=== PATIENT | male | born 1960 | race Caucasian/White ===

== ENCOUNTER 2022-10-27 21:27 | Emergency (ER) | payer BC, SELFPAY ==
[2022-10-27 21:30] VITALS: BP 112/72; PULSE 83; RESP 19; TEMP 36.7; O2SAT 92; BMI 29.3
--- NOTE | 2022-10-27 21:37 | ECG_ITS ---
APPROVED REPORT Exam: Resting ECG HR:79 bpm ECG Measurements Heart Rate 79 AXES CA 147 P 65 QRSd 106 QRS 70 QT 399 T 60 QTc 433 Conclusion SINUS RHYTHM NORMAL ECG UNCONFIRMED REPORT Electronically signed by : Kwesi Mazariegos MD 10/28/2022 07:01:08
--- NOTE | 2022-10-27 21:55 | CT_ITS ---
PROCEDURE INFORMATION: Exam: CT Head Without Contrast Exam date and time: 10/27/2022 10:35 PM Age: 62 years old Clinical indication: Weakness, extremity; Additional info: Syncope, L sided weakness temporarily TECHNIQUE: Imaging protocol: Computed tomography of the head without contrast. Radiation optimization: All CT scans at this facility use at least one of these dose optimization techniques: automated exposure control; mA and/or kV adjustment per patient size (includes targeted exams where dose is matched to clinical indication); or iterative reconstruction. REPORTING DATA: Count of CT and Cardiac NM exams in prior 12 months: This patient has received 0 known CTs and 0 known cardiac nuclear medicine studies in the 12 months prior to the current study. COMPARISON: No relevant prior studies available. FINDINGS: Brain: Mild generalized cerebral/cerebellar atrophy. Minimal bilateral white matter hypodensities which are nonspecific but most commonly associated with chronic microvascular ischemia in this age group. The IACs are grossly normal. No extra-axial fluid collections. No evidence of acute intracranial hemorrhage. No CT evidence of large territory acute or subacute intracranial ischemia/infarct. No intracranial mass lesions. No midline shift or herniation. Cerebral ventricles: Ventricles normal. Pituitary gland and sella: The sella is grossly normal. Paranasal sinuses: Visualized paranasal sinuses are clear. Mastoid air cells: Visualized mastoid air cells are clear. Orbital cavities: No acute intraorbital findings. Bones/joints: The calvarium and visualized facial bones are intact. Soft tissues: The scalp and visualized soft tissues demonstrate no acute abnormality. Vasculature: No asymmetric vascular hyperdensities suggestive of thrombosis are identified. Other findings: Sandra-white matter differentiation is well maintained. IMPRESSION: 1. No acute intracranial process. No intracranial hemorrhage or mass effect. 2. Minor cerebral/cerebellar atrophy consistent with age.
--- NOTE | 2022-10-27 21:55 | XR_ITS ---
PROCEDURE INFORMATION: Exam: XR Chest Exam date and time: 10/27/2022 9:54 PM Age: 62 years old Clinical indication: Other: Syncope; Additional info: Syncpoe, dvt TECHNIQUE: Imaging protocol: Radiologic exam of the chest. Views: 1 view. COMPARISON: No relevant prior studies available. FINDINGS: Lungs: Normal pulmonary expansion. Pulmonary vasculature grossly normal. No gross pulmonary infiltrates or edema pattern. Pleural spaces: No pleural effusion. No pneumothorax. Heart/Mediastinum: Heart size normal. No tracheal/mediastinal shift. Vasculature: Mild aortic ectasia/tortuosity. Bones/joints: No acute osseous abnormalities are identified. Mild thoracic spondylosis. IMPRESSION: No acute thoracic process.
--- NOTE | 2022-10-27 21:55 | CT_ITS ---
PROCEDURE INFORMATION: Exam: CTA Chest With Contrast Exam date and time: 10/27/2022 10:44 PM Age: 62 years old Clinical indication: Other: Weakness; Additional info: Syncope, L sided weakness temporarily TECHNIQUE: Imaging protocol: Computed tomographic angiography of the chest with contrast. Exam focused on the arteries. 3D rendering (Not supervised by radiologist): MIP and/or 3D reconstructed images were created by the technologist. Radiation optimization: All CT scans at this facility use at least one of these dose optimization techniques: automated exposure control; mA and/or kV adjustment per patient size (includes targeted exams where dose is matched to clinical indication); or iterative reconstruction. Contrast material: ISOVUE; Contrast volume: 70 ml; Contrast route: INTRAVENOUS (IV); REPORTING DATA: Count of CT and Cardiac NM exams in prior 12 months: This patient has received 0 known CTs and 0 known cardiac nuclear medicine studies in the 12 months prior to the current study. COMPARISON: CR XR CHEST PORTABLE 10/27/2022 9:54 PM FINDINGS: Pulmonary arteries: Normal. No pulmonary emboli. Aorta: Unremarkable. No aortic aneurysm. No aortic dissection. Lungs: Minimal upper lobe emphysematous changes. Mild atelectasis. No focal airspace consolidation. Pleural spaces: Unremarkable. No pneumothorax. No pleural effusion. Heart: Unremarkable. No cardiomegaly. No pericardial effusion. Coronary arteries: Mild coronary artery calcifications. Lymph nodes: Unremarkable. No enlarged lymph nodes. Pancreas: Fatty infiltrative changes pancreas. Kidneys and ureters: Bilateral renal cysts, the largest of which measures 4.3 cm of the left kidney interpolar region. Bones/joints: No acute osseous findings. Degenerative changes of the bilateral shoulders. Soft tissues: Minimal bilateral gynecomastia. IMPRESSION: No pulmonary embolism. COMMENTS: 1. Consistent with the [employer]'s Incidental Findings Committee white paper (J Am Allyssa Radiol 2018): Any incidental renal lesion less than 1 cm or classified as too small to characterize, or any incidental cystic renal lesion characterized as simple-appearing, is likely benign. No follow-up imaging is recommended for these lesions per consensus recommendations based on imaging criteria. 2. In the absence of a history or active diagnosis of lung cancer, it is recommended that this patient with emphysema be evaluated for enrollment in a low dose CT lung cancer screening program.
--- NOTE | 2022-10-27 21:55 | CT_ITS ---
PROCEDURE INFORMATION: Exam: CTA Neck With Contrast Exam date and time: 10/27/2022 10:38 PM Age: 62 years old Clinical indication: Syncope and collapse; Additional info: Syncope, L sided weakness temporarily TECHNIQUE: Imaging protocol: Computed tomographic angiography of the neck with contrast. 3D rendering (Not supervised by radiologist): MIP and/or 3D reconstructed images were created by the technologist. Radiation optimization: All CT scans at this facility use at least one of these dose optimization techniques: automated exposure control; mA and/or kV adjustment per patient size (includes targeted exams where dose is matched to clinical indication); or iterative reconstruction. Contrast material: ISOVUE; Contrast volume: 100 ml; Contrast route: INTRAVENOUS (IV); REPORTING DATA: Count of CT and Cardiac NM exams in prior 12 months: This patient has received 0 known CTs and 0 known cardiac nuclear medicine studies in the 12 months prior to the current study. COMPARISON: CT HEAD/BRAIN WO CON 10/27/2022 10:35 PM FINDINGS: Right common carotid artery: Normal. No stenosis. No dissection or occlusion. Right internal carotid artery: Mild calcific plaque in the right carotid bulb. No stenosis. No dissection or occlusion. Right external carotid artery: Normal. No stenosis. No dissection or occlusion. Left common carotid artery: Normal. No stenosis. No dissection or occlusion. Left internal carotid artery: Minimal mixed calcific plaque in the left carotid bulb and proximal ICA segment. No stenosis. No dissection or occlusion. Left external carotid artery: Normal. No stenosis. No dissection or occlusion. Right vertebral artery: Normal. No stenosis. No dissection or occlusion. Left vertebral artery: Normal. No stenosis. No dissection or occlusion. Brachiocephalic artery: The brachiocephalic artery is unremarkable. Right subclavian artery: The right subclavian artery is unremarkable. Left subclavian artery: The left subclavian artery is unremarkable. Aorta: The visualized aortic arch demonstrates mild ectasia and calcific plaque without evidence of dissection or gross aneurysm. Thyroid: The thyroid gland is unremarkable. Soft tissues: No significant soft tissue swelling or hematoma. Bones/joints: No acute osseous abnormalities are identified. Moderate left-sided osteoarthritic facet hypertrophy in the mid and lower cervical spine. Prominent uncovertebral spurring C3-C4 and to a lesser degree C4-C5. Multilevel severe bilateral foraminal stenoses. Lungs: Mild bilateral apical pleuroparenchymal scarring. IMPRESSION: No evidence of arterial occlusion, significant stenosis, dissection, or aneurysm/pseudoaneurysm. REFERENCES: NASCET CRITERIA. The degree of stenosis in the cervical segment of the internal carotid artery is based on NASCET criteria. Normal is no stenosis. Mild is less than 50% stenosis. Moderate is 50-69% stenosis. Severe is 70% to 99% stenosis. Total occlusion is no detectable patent lumen.
--- NOTE | 2022-10-27 21:55 | CT_ITS ---
PROCEDURE INFORMATION: Exam: CTA Head With Contrast, Arteriography Exam date and time: 10/27/2022 10:38 PM Age: 62 years old Clinical indication: Syncope and collapse; Additional info: Syncope, L sided weakness temporarily TECHNIQUE: Imaging protocol: Computed tomographic angiography of the head with contrast. Exam focused on the arteries. 3D rendering (Not supervised by radiologist): MIP and/or 3D reconstructed images were created by the technologist. Radiation optimization: All CT scans at this facility use at least one of these dose optimization techniques: automated exposure control; mA and/or kV adjustment per patient size (includes targeted exams where dose is matched to clinical indication); or iterative reconstruction. Contrast material: ISOVUE; Contrast volume: 100 ml; Contrast route: INTRAVENOUS (IV); REPORTING DATA: Count of CT and Cardiac NM exams in prior 12 months: This patient has received 0 known CTs and 0 known cardiac nuclear medicine studies in the 12 months prior to the current study. COMPARISON: CT HEAD/BRAIN WO CON 10/27/2022 10:35 PM FINDINGS: ANTERIOR CIRCULATION: Right internal carotid artery: The right ICA petrous segment is unremarkable. Minimal calcific plaque in the right ICA cavernous segment without stenosis. The right ICA supraclinoid segment is unremarkable. Right middle cerebral artery: Unremarkable. No occlusion or significant stenosis. No aneurysm. Right anterior cerebral artery: Unremarkable. No occlusion or significant stenosis. No aneurysm. The anterior communicating artery is unremarkable. Left internal carotid artery: The left ICA petrous segment is unremarkable. Left ICA cavernous segment is unremarkable. The left ICA supraclinoid segment is unremarkable. Left middle cerebral artery: Unremarkable. No occlusion or significant stenosis. No aneurysm. Left anterior cerebral artery: Unremarkable. No occlusion or significant stenosis. No aneurysm. POSTERIOR CIRCULATION: Right vertebral artery: Unremarkable. No occlusion or significant stenosis. No aneurysm. Left vertebral artery: Unremarkable. No occlusion or significant stenosis. No aneurysm. Basilar artery: Unremarkable. No occlusion or significant stenosis. No aneurysm. Right posterior cerebral artery: Unremarkable. No occlusion or significant stenosis. No aneurysm. Left posterior cerebral artery: Unremarkable. No occlusion or significant stenosis. No aneurysm. Dural venous sinuses: Thin/linear nonocclusive filling defect extending in the left transverse sinus and sigmoid sinus has an appearance most suggestive of chronic bandlike fibrotic remnant of prior thrombosis although can not exclude acute or subacute elements of nonocclusive thrombus in this distribution. It is not fully occlusive. Venous drainage is right-sided dominant. The other dural venous sinuses and major cortical veins are patent without evidence of thrombosis. The proximal internal jugular veins are patent without evidence of thrombosis, although enhancement intensity is slightly lesser on the left. Brain: No enhancing brain lesions or vascular malformations are identified. Cerebral ventricles: No ventriculomegaly. Bones/joints: Unremarkable. No acute fracture. Soft tissues: Unremarkable. IMPRESSION: 1. No evidence of large vessel arterial occlusion or significant arterial stenosis. No evidence of arterial dissection or aneurysm/pseudoaneurysm. 2. 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 No alec venous o
[2022-10-27 22:00] VITALS: BP 100/63; PULSE 87; O2SAT 96
[2022-10-27 22:01] LABS: Basophils % 0.2 % (0.1-2.0); Eosinophils # 0.1 K/mm3 (0.0-0.4); Eosinophils % 0.9 % (0.1-12.0); Hematocrit 43.5 % (42.0-52.0); Lymphocytes # 1.8 K/mm3 (0.7-4.5); Mean Corpuscular HGB Conc 32.2 g/dL (31.8-35.4); Mean Corpuscular Hemoglobin 29.1 pg (27.0-31.2); Mean Corpuscular Volume 90.2 fl (80-94); Mean Platelet Volume 7.8 fl (7.4-10.4); Monocytes # 0.5 K/mm3 (0.1-1.0); Monocytes % 5.3 % (1.7-9.3); Neutrophils # 6.7 K/mm3 (1.8-7.8); Neutrophils % 73.6 % (37.0-80.0); Platelet Count 285 K/mm3 (142-424); Red Blood Count 4.82 M/mm3 (4.60-6.20); White Blood Count 9.1 K/mm3 (4.8-10.8)
[2022-10-27 22:02] LABS: Chloride 106 mmol/L (98-107); Potassium 3.6 mmoL/L (3.5-5.1); Sodium 143 mmol/L (136-145)
[2022-10-27 22:05] LABS: Alanine Aminotransferase 22 U/L (12-78); Albumin/Globulin Ratio 1.7 (1.1-1.8); Alkaline Phosphatase 80 U/L (38-126); Anion Gap 15.6 mEq/L (5-15); Aspartate Amino Transferase 25 U/L (17-59); Bilirubin,Total 0.7 mg/dl (0.2-1.3); Blood Urea Nitrogen 12 mg/dl (9-20); Carbon Dioxide 25 mmol/L (22.0-30.0); Creatinine Clearance Estimated 95 mL/min (50-200); Estimated Glomerular Filt Rate 61 ml/min (>60); GFR (African American) 74 ML/MIN (>60); Globulin 2.4 g/dL (1.3-3.2); Total Protein,Serum 6.4 g/dl (6.3-8.2)
[2022-10-27 22:06] LABS: Calcium 9.5 mg/dl (8.4-10.2); Glucose 156 mg/dl (74-100)
[2022-10-27 22:15] LABS: NT Pro Brain Natriuretic Pep. 176 pg/mL (0-125)
[2022-10-27 22:18] LABS: Troponin I < 0.01 ng/ml (0.00-0.034)
[2022-10-27 22:22] LABS: T4 (Thyroxine) 11.7 ug/dl (5.53-11.0)
--- NOTE | 2022-10-27 22:26 | HMH.EDGENADL ---
Discharge Plan Disposition Patient Disposition: Xfer Short-Term Hosp Condition: Good Referrals Follow up/Referrals: Erika Wilkes [Primary Care Provider] - See instructions Clinical Impressions Clinical Impression: Syncope and collapse, History of deep vein thrombosis, Cerebral venous sinus thrombosis Discharge ED Provider: Benoit Ansari General Adult HPI <Martin Amezcua MD - Last Filed: 10/27/22 23:01> General Chief complaint: Dizziness Stated complaint: sweating,cramping both arms,confussion, Time Seen by Provider: 10/27/22 21:32 Mode of Arrival: Family Vehicle Source of Information: Patient Limitations: No Limitations Description of Symptoms (Recalled from ER Triage Doc. by RN): Light headed History of Present Illness HPI narrative: This is a 62-year-old male with history of recently diagnosed DVT in the left lower extremity currently on Xarelto presenting with altered mental status and syncope. Per patient and family at bedside, patient was outside in the heat for a few hours today. Patient had an event that was not triggered by anything in particular where he became lightheaded, diaphoretic, felt globally weak. He was helped down to his knees and sat down with help of family. Family at bedside states that patient lost consciousness for approximately one 1 minute, then had period of confusion afterward. Family also states that patient may have been weak on his left side as compared to his right during this episode. No vomiting. Patient denies chest pain, vision changes, shortness of breath, palpitations, nausea or vomiting, abdominal pain, unilateral deficits, fevers or chills, or any other concerns. Has been taking all his medications as prescribed. Related Data Allergies Allergy/AdvReac Type Severity Reaction Status Date / Time No Known Allergies Allergy Verified 10/27/22 21:58 PFSH <Martin Amezcua MD - Last Filed: 10/27/22 23:01> PFS Disclaimer: The information contained in this section may have been updated after the patient was seen, as this information can be updated by other users. Social History (Updated 10/27/22 @ 23:01 by Martin Amezcua MD) Smoking Status: Current every day smoker alcohol intake: never current occupational status: employed Travel in the last 8 weeks: None <Martin Amezcua MD - Last Filed: 10/27/22 23:01> ROS Obtained: Yes All systems reviewed & no additional complaints except as documented Physical Exam <Martin Amezcua MD - Last Filed: 10/27/22 23:01> General General appearance: alert, in no apparent distress and other ( ) Head Head exam: atraumatic and normocephalic Eye Eye exam: Present normal appearance, PERRL and EOMI ENT ENT exam: Present mucous membranes moist Neck Neck exam: Present normal inspection, full ROM and trachea midline Respiratory Respiratory exam: Absent respiratory distress, wheezes, stridor, accessory muscle use or prolonged expiratory phase Cardiovascular Cardiovascular exam: Present regular rate, normal rhythm and systolic murmur Abdominal Exam Abdominal exam: Present soft; Absent distention, tenderness, guarding, rebound, rigidity or normal bowel sounds Extremities Exam Extremities exam: Absent edema Neurological Exam Neurological exam: Present alert, oriented X3, CN II-XII intact and normal gait; Absent motor sensory deficit Skin Skin exam: Present warm and dry; Absent diaphoresis or erythema Medical Decision Making <Martin Amezcua MD - Last Filed: 10/27/22 23:01> Medical Records Medical records reviewed: Yes I reviewed the patient's medical records. Bear Inquiry Pt receiving controlled substance: No Bear was queried for this patient: No Vital Signs: 10/27/22 21:30 10/27/22 22:00 Temperature 98.1 F Temperature Source Oral Pulse Rate 87 Pulse Rate [Right Radial] 83 Respiratory Rate 19 Blood Pressure 100/63 L Blood Pressure [Right Arm] 112/72 Blood Pressure Mean 75 Blood Pressure Mean [Right Arm] 85 Bloo
[2022-10-27 22:36] LABS: Thyroid Stimulating Hormone 1.28 uIU/mL (0.465-4.68)
[2022-10-27 23:00] VITALS: BP 119/68; PULSE 84; O2SAT 96
[2022-10-27 23:30] VITALS: BP 120/72; PULSE 85; O2SAT 96
--- NOTE | 2022-10-27 23:48 | PC.NURSE ---
Called Transfer center at this time.
[2022-10-28 00:01] VITALS: BP 120/72; PULSE 86; O2SAT 92
--- NOTE | 2022-10-28 00:01 | PC.NURSE ---
on phone with at this time.
--- NOTE | 2022-10-28 00:25 | PC.NURSE ---
Spoke to ayala POLK called report bib POLK
[2022-10-28 00:30] VITALS: BP 124/74; PULSE 76; O2SAT 95
--- NOTE | 2022-10-28 00:57 | PC.NURSE ---
notified [facility] that pt is ready for transported to
[2022-10-28 01:19] VITALS: BP 134/71; PULSE 71; RESP 18; TEMP 36.7; O2SAT 94
== END 2022-10-28 01:20 | disposition short-term general hospital (02) ==
PROVIDERS: Emergency Medicine; Emergency Provider Emergency Medicine; PCP Family Medicine
DX: I67.6 Nonpyogenic thrombosis of intracranial venous system (principal); R41.82 Altered mental status, unspecified; R55 Syncope and collapse; Z79.01 Long term (current) use of anticoagulants; F17.200 Nicotine dependence, unspecified, uncomplicated
CPT/HCPCS: 70450; 70496; 70498; 71045; 71275; 80053; 83880; 84436; 84443; 84484; 85025; 93005; 96360; 99285; Q9967